=== PATIENT | female | born 1985 | race Caucasian/White ===

== ENCOUNTER 2016-09-09 20:50 | Emergency (ER) | payer MEDICAID ==
[~2016-09-09] VITALS: Ht 149.9 cm; Wt 48.5 kg
[2016-09-09 22:32] VITALS: BP 106/63
== END 2016-09-09 23:41 | disposition home or self-care (01) ==
LOC: ER 20:52
DX: S63.501A Unspecified sprain of right wrist, initial encounter (principal); W01.0XXA Fall on same level from slipping, tripping and stumbling without subsequent striking against object, initial encounter; Y93.89 Activity, other specified; Y99.8 Other external cause status; Y92.89 Other specified places as the place of occurrence of the external cause
CPT/HCPCS: 29125; 73110

== ENCOUNTER 2019-12-01 02:52 | Observation (INO) | payer MEDICAID ==
[~2019-12-01] VITALS: Ht 149.9 cm; Wt 51.8 kg
[2019-12-01] MEDS ORDERED: SODIUM CHLORIDE 0.9% 1,000 ML IVB ONE (03:15)
[2019-12-01] MEDS ORDERED: PROMETHAZINE HCL 25 MG/ML 1ML IV ONE ×2 (04:00→07:45)
[2019-12-01] MEDS ORDERED: MORPHINE SULFATE 4 MG/ML SYR/VIAL IV ONE (04:00)
[2019-12-01 04:23] LABS: Basophils # (auto) 0 10 ^3/uL (0-0.2); Basophils % (auto) 0.4 % (0.0-2.0); Eosinophils # (auto) 0 10 ^3/uL (0-0.8); Lymphocytes # (auto) 0.8 10 ^3/uL (0.4-5.4); Mean Corpuscular Hgb Conc. 33.4 g/dL (32.0-36.0); Monocytes # (auto) 0.5 10 ^3/uL (0-1.3); Monocytes % (auto) 4.3 % (0.0-12.0); Neutrophils # (auto) 10.3 10 ^3/uL (1.6-8.6); White Blood Cell 11.6 10^3/uL (4.4-10.8)
[2019-12-01 04:31] LABS: Eosinophils % (auto) 0.1 % (0.0-7.0); Hematocrit 43.9 % (36.0-46.0); Hemoglobin 14.6 g/dL (12.2-16.2); Lymphocytes % (auto) 6.7 % (10.0-50.0); Mean Corpuscular Hemoglobin 29.3 pg (28.0-32.0); Mean Corpuscular Volume 87.7 fL (80.0-100.0); Neutrophils % (auto) 88.5 % (37.0-80.0); Nucleated Red Blood Cells % 0.1 %; Platelet Count (auto) 547 10^3/uL (140-450); Red Cell Distribution Width 13.9 % (11.8-14.3)
[2019-12-01 04:44] LABS: Calcium 9.4 mg/dL (8.5-10.1); Potassium 3.4 mmol/L (3.5-5.1)
[2019-12-01 04:48] LABS: BUN/Creatinine Ratio 10.1; Bilirubin, Total 0.7 mg/dL (0.2-1.0)
[2019-12-01] MEDS ORDERED: SODIUM CHLORIDE 0.9% 1,000 ML IV ONE (09:15)
[2019-12-01] MEDS ORDERED: SODIUM CHLORIDE 0.9% 500 ML IVB ONE (09:15)
[2019-12-01 10:15] LABS: INR 1.03 (0.9-1.15); Partial Thromboplastin Time 25.5 sec (23.0-31.2)
[2019-12-01] MEDS ORDERED: GASTROGRAFIN 120 ML SOL ONE (10:55)
[2019-12-01] MEDS ORDERED: PROCHLORPERAZINE EDISYLATE 5 MG/ML 2ML VIAL IV ONE (11:00)
[2019-12-01] MEDS ORDERED: MORPHINE SULF INJ 2 MG/ML SYRINGE 1ML IV ONE (13:15)
[2019-12-01] MEDS ORDERED: ONDANSETRON HCL 4 MG/2 ML VIAL IV ONE ×2 (13:15→13:30)
[2019-12-01 13:27] LABS: Urine Bacteria FEW /hpf (None Seen); Urine Blood 1+ /uL (Negative); Urine Mucus MODERATE (None Seen); Urine Specific Gravity 1.025 (1.001-1.035); Urine WBC 76 /hpf (0 - 5)
[2019-12-01] MEDS ORDERED: ACETAMINOPHEN 500 MG TAB PO PRN (14:45)
[2019-12-01] MEDS: LACTATED RINGER'S 1,000 ML IV SCH (15:07)
[2019-12-01] MEDS ORDERED: HYDR-531 PO (18:34)
[2019-12-01] MEDS: cefTRIAXone 1GM/50ML D5W 50 ML IV SCH (20:18)
[2019-12-01] MEDS: PROMETHAZINE HCL 25 MG/ML 1ML IV PRN (20:47)
[2019-12-01] MEDS: MORPHINE SULF INJ 2 MG/ML SYRINGE 1ML IV PRN (20:48)
[2019-12-01] MEDS: FAMOTIDINE (10MG/ML) 2ML VL IV SCH (21:10)
[2019-12-01 22:00] VITALS: BP 106/60
[2019-12-02] MEDS: LACTATED RINGER'S 1,000 ML IV SCH ×4 (00:30→23:24)
[2019-12-02] MEDS: PROMETHAZINE HCL 25 MG/ML 1ML IV PRN ×4 (02:04→19:59)
[2019-12-02 05:00] VITALS: BP 110/69
[2019-12-02] MEDS: MORPHINE SULF INJ 2 MG/ML SYRINGE 1ML IV PRN ×4 (06:04→19:50)
[2019-12-02 07:21] LABS: Basophils # (auto) 0 10 ^3/uL (0-0.2); Basophils % (auto) 0.2 % (0.0-2.0); Eosinophils # (auto) 0.1 10 ^3/uL (0-0.8); Eosinophils % (auto) 0.4 % (0.0-7.0); Hematocrit 37.5 % (36.0-46.0); Hemoglobin 12.6 g/dL (12.2-16.2); Lymphocytes # (auto) 1.1 10 ^3/uL (0.4-5.4); Lymphocytes % (auto) 7.9 % (10.0-50.0); Mean Corpuscular Hemoglobin 29.3 pg (28.0-32.0); Mean Corpuscular Hgb Conc. 33.5 g/dL (32.0-36.0); Mean Corpuscular Volume 87.5 fL (80.0-100.0); Monocytes % (auto) 7.2 % (0.0-12.0); Neutrophils # (auto) 11.8 10 ^3/uL (1.6-8.6); Neutrophils % (auto) 84.3 % (37.0-80.0); Nucleated Red Blood Cells % 0.1 %; Platelet Count (auto) 436 10^3/uL (140-450); Red Blood Cells 4.29 10^6/uL (4.0-5.20); Red Cell Distribution Width 14.2 % (11.8-14.3)
[2019-12-02 07:44] LABS: Potassium 3.2 mmol/L (3.5-5.1)
[2019-12-02 07:48] LABS: Calcium 8.2 mg/dL (8.5-10.1)
[2019-12-02 09:00] VITALS: BP 100/59
[2019-12-02] MEDS ORDERED: POTASSIUM CHLORIDE 20 MEQ, LIDOCAINE 1% (LOCAL ANESTH.) 2 ML in SODIUM CHL 0.9% 100 ML IV ONE (09:00)
[2019-12-02] MEDS: FAMOTIDINE (10MG/ML) 2ML VL IV SCH ×2 (09:01→21:33)
[2019-12-02] MEDS: cefTRIAXone 1GM/50ML D5W 50 ML IV SCH (09:01)
[2019-12-02 12:52] VITALS: BP 117/55
[2019-12-02 17:00] VITALS: BP 115/67
[2019-12-02 22:00] VITALS: BP 113/71
[2019-12-03 05:00] VITALS: BP 108/68
[2019-12-03] MEDS: MORPHINE SULF INJ 2 MG/ML SYRINGE 1ML IV PRN (05:06)
[2019-12-03] MEDS: LACTATED RINGER'S 1,000 ML IV SCH (06:57)
[2019-12-03 07:03] LABS: Basophils # (auto) 0 10 ^3/uL (0-0.2); Basophils % (auto) 0.6 % (0.0-2.0); Eosinophils # (auto) 0.2 10 ^3/uL (0-0.8); Eosinophils % (auto) 2.9 % (0.0-7.0); Hematocrit 38.9 % (36.0-46.0); Hemoglobin 12.9 g/dL (12.2-16.2); Lymphocytes # (auto) 2.1 10 ^3/uL (0.4-5.4); Lymphocytes % (auto) 33.8 % (10.0-50.0); Mean Corpuscular Hemoglobin 29.3 pg (28.0-32.0); Mean Corpuscular Volume 88.8 fL (80.0-100.0); Monocytes # (auto) 0.9 10 ^3/uL (0-1.3); Monocytes % (auto) 13.6 % (0.0-12.0); Neutrophils # (auto) 3.1 10 ^3/uL (1.6-8.6); Neutrophils % (auto) 49.1 % (37.0-80.0); Platelet Count (auto) 357 10^3/uL (140-450); Red Blood Cells 4.38 10^6/uL (4.0-5.20); Red Cell Distribution Width 14.2 % (11.8-14.3); White Blood Cell 6.3 10^3/uL (4.4-10.8)
[2019-12-03 07:28] LABS: BUN/Creatinine Ratio 5.9; Calcium 8.5 mg/dL (8.5-10.1); Potassium 3.3 mmol/L (3.5-5.1)
[2019-12-03 09:00] VITALS: BP 117/70
[2019-12-03] MEDS: cefTRIAXone 1GM/50ML D5W 50 ML IV SCH (09:58)
[2019-12-03] MEDS: FAMOTIDINE (10MG/ML) 2ML VL IV SCH (09:58)
[2019-12-03 13:00] VITALS: BP 124/71
[2019-12-03] MEDS ORDERED: OMEP-434 PO (14:02)
[2019-12-03] MEDS ORDERED: CIPR-173 PO (14:02)
[2019-12-03] MEDS ORDERED: LACT10SO3 PO (14:02)
[2019-12-03 14:52] VITALS: BP 126/97
== END 2019-12-03 15:23 | disposition home or self-care (01) ==
LOC: EDBD 02:52 → ER 02:52 → INTOOBSV 02:53 → OVERFLOW 02:53 → CENTRAL 18:01
PROVIDERS: ADMIT Hospitalist; ATTEND Hospitalist
DX: K56.609 Unspecified intestinal obstruction, unspecified as to partial versus complete obstruction (principal); K56.7 Ileus, unspecified; E87.6 Hypokalemia; N39.0 Urinary tract infection, site not specified; R11.2 Nausea with vomiting, unspecified; Z90.49 Acquired absence of other specified parts of digestive tract; Z79.899 Other long term (current) drug therapy
CPT/HCPCS: 36415; 71045; 74018; 74176; 74250; 80048; 80053; 81001; 83605; 83690; 83735; 84702; 85025; 85610; 85730; 87040; 87081; 96361; 96365; 96366; 96367; 96375; 96376; 99285; G0378; J0696; J0780; J2001; J2270; J2405; J2550; J3480; J3490; J7030; Q9963; 96374